=== PATIENT | female | born 1975 | race Two or more races ===

== ENCOUNTER 2016-10-01 17:28 | Emergency (ER) | payer SELFPAY ==
[2016-10-01] MEDS ORDERED: NO HOME MEDICATION XX (19:04)
[2016-10-01 19:56] LABS: URINE BILIRUBIN NEGATIVE (NEG); URINE BLOOD MODERATE (NEG); URINE GLUCOSE (UA) NEGATIVE (NEG); URINE KETONE NEGATIVE (NEG); URINE LEUKOCYTE ESTERASE POSITIVE (NEG); URINE NITRITE POSITIVE (NEG); URINE PROTEIN MODERATE (NEG); URINE SPECIFIC GRAVITY 1.025 (1.003-1.030)
[2016-10-01 19:57] LABS: URINE APPEARANCE CLOUDY; URINE COLOR YELLOW
[2016-10-01 20:02] LABS: URINE AMORPHOUS 1+; URINE BACTERIA 2+; URINE RBC RARE /[HPF] (0-5); URINE WBC 15-20 /[HPF] (0-5)
[2016-10-01] MEDS ORDERED: PYRIDIUM100 M2 PO (20:25)
[2016-10-01] MEDS ORDERED: MACROBID 100 M100 M1 PO (20:25)
== END 2016-10-01 20:45 ==
LOC: EDMED 17:28
PROVIDERS: Emergency Medicine
DX: N39.0 Urinary tract infection, site not specified (principal)